=== PATIENT | male | born 1970 | race Caucasian/White ===

== ENCOUNTER → 2021-07-04 | Outpatient (REF) | LOC: M LABSMTC 09:08 | PROVIDERS: ATTEND Pediatrics | DX: Z20.822 Contact with and (suspected) exposure to COVID-19 (principal) ==

== ENCOUNTER → 2021-12-24 | Outpatient (CLI) | payer OTHER | LOC: M RAD 11:37 | PROVIDERS: ATTEND Nurse Practitioner Family | DX: R94.6 Abnormal results of thyroid function studies (principal) ==

== ENCOUNTER → 2023-07-29 | Outpatient (REF) | LOC: M PLAIMG 09:12 | PROVIDERS: ATTEND Internal Medicine | DX: R06.02 Shortness of breath (principal) ==